=== PATIENT | male | born 1980 | race Caucasian/White ===

== ENCOUNTER 2024-04-11 21:54 | Emergency (ER) | payer OTHER ==
[2024-04-11] MEDS ORDERED: ACETAMINOPHEN 325 MG TABLET ONE (22:29)
[2024-04-11] MEDS ORDERED: IBUPROFEN 400 MG TAB ONE (22:29)
[2024-04-11] MEDS ORDERED: HYDROCODONE/APAP 5/325 MG TAB ONE (22:30)
--- NOTE | 2024-04-12 00:07 | ER ---
Nurse's Notes [facility] Name: Josep Douglas Age: 44 yrs Sex: Male : 1980 Arrival Date: 04/11/2024 Time: 21:54 Bed 19 Private MD: Diagnosis: Sprain of ankle-right Presentation: 04/11 22:23 Chief complaint: Patient states: walking home and stepped in a hole heard right ankle vc1 pop. Coronavirus screen: Client denies travel out of the [place] in the last 14 days. At this time, the client does not indicate any symptoms associated with coronavirus-19. Ebola Screen: Patient negative for fever greater than or equal to 101.5 degrees Fahrenheit, and additional compatible Ebola Virus Disease symptoms Patient denies exposure to infectious person. Patient denies travel to an Ebola-affected area in the 21 days before illness onset. No symptoms or risks identified at this time. Initial Sepsis Screen: Does the patient meet any 2 criteria? No. Patient's initial sepsis screen is negative. Does the patient have a suspected source of infection? No. Patient's initial sepsis screen is negative. Risk Assessment: Do you want to hurt yourself or someone else? Patient reports no desire to harm self or others. Onset of symptoms was April 11, 2024 at 21:00. 22:23 Method Of Arrival: Wheelchair vc1 22:23 Acuity: RAVI 3 vc1 Triage Assessment: 22:26 General: Appears in no apparent distress. uncomfortable, well groomed, well developed, vc1 Behavior is calm, cooperative, appropriate for age. Pain: Complains of pain in right lateral malleolus and dorsum of right foot Pain does not radiate. Pain currently is 10 out of 10 on a pain scale. Quality of pain is described as sharp, Pain began suddenly, Is continuous, Alleviated by rest, Aggravated by increased activity, weight bearing, Noted to be resistant to movement. EENT: No deficits noted. No signs and/or symptoms were reported regarding the EENT system. Neuro: Level of Consciousness is awake, alert, obeys commands, Oriented to person, place, time, situation, Appropriate for age. Cardiovascular: Patient's skin is warm and dry. Respiratory: Airway is patent Respiratory effort is even, unlabored, Respiratory pattern is regular, symmetrical. GI: No deficits noted. No signs and/or symptoms were reported involving the gastrointestinal system. : No deficits noted. No signs and/or symptoms were reported regarding the genitourinary system. Derm: Skin is intact, is healthy with good turgor, Skin is dry, Skin is normal, Skin temperature is warm. Musculoskeletal: Swelling present in dorsum of right foot. 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 - Infectious Disease History:: Denies. - Social history:: Smoking status: Patient reports the use of cigarette tobacco products, smokes one-half pack cigarettes per day. Screenin:25 [facility] ED Fall Risk Assessment (Adult) History of falling in the last 3 months, vc1 including since admission Yes- single mechanical fall (1 pt) Confusion or Disorientation No (0 pts) Intoxicated or Sedated No (0 pts) Impaired Gait No (0 pts) Mobility Assist Device Used No (0 pt) Altered Elimination No (0 pt) Score/Fall Risk Level 0 - 2 = Low Risk Oriented to surroundings, Maintained a safe environment, Educated pt \T\ family on fall prevention, incl call for assistance when getting out of bed, Assessed \T\ reinforced patient's understanding of fall precautions, Hourly rounding (assess needs \T\ fall precautionary measures) done. Abuse screen: Denies threats or abuse. Nutritional screening: No deficits noted. Tuberculosis screening: No symptoms or risk factors identified. Assessment: 21:45 Reassessment: Patient and/or family updated on plan of care and expected duration. Pain br2 level reassessed. Patient is alert, oriented x 3, equal unlabored respirations, skin warm/dry/pink. Patient states feeling better. Patient states symptoms have improved. 22:27 Reassessment: Patient and/or family updated on plan of care and expected duration. Pain br2 level reassessed. Patient is alert, oriented x 3, equal unlabored respirations, skin warm/dry/pink. General: Appears uncomfortable, Behavior is calm, cooperative. Pain: Complains of pain in right ankle Pain does not radiate. Pain currently is 9 out of 10 on a pain scale. Quality of pain is described as aching, Pain began 2 hours ago. Neuro: [place] Agitation-Sedation Scale (RASS): 0 - Alert and Calm Level of Consciousness is awake, alert, obeys commands, Oriented to person, place, time, situation. Cardiovascular: Denies chest pain, shortness of breath, Capillary refill < 3 seconds. Respiratory: Airway is patent Respiratory effort is even, unlabored, Respiratory pattern is regular, symmetrical. GI: No signs and/or symptoms were reported involving the gastrointestinal system. : No signs and/or symptoms were reported regarding the genitourinary system. EENT: No signs and/or symptoms were reported regarding the EENT system. Derm: No signs and/or symptoms reported regarding the dermatologic system. Musculoskeletal: Swelling present in right ankle. Injury Description: STEPPED INTO A HOLE. 23:52 Reassessment: Patient and/or family updated on plan of care and expected duration. Pain br2 level reassessed. Patient is alert, oriented x 3, equal unlabored respirations, skin warm/dry/pink. Patient states feeling better. Patient states symptoms have improved. Vital Signs: 22:23 BP 149 / 98; Pulse 76; Resp 14; Pulse Ox 99% ; Weight 79.83 kg; Height 5 ft. 0 in. ; vc1 Pain 10/10; 22:30 BP 140 / 97; Pulse 76; Resp 18; Pulse Ox 99% ; br2 23:30 BP 134 / 95; Pulse 74; Resp 16 S; Pulse Ox 95% on R/A; Pain 3/10; br2 04/12 00:30 BP 137 / 94; Pulse 86; Resp 18 S; Pulse Ox 96% on R/A; Pain 3/10; br2 04/11 22:23 Body Mass Index 34.37 (79.83 kg, 152.4 cm) vc1 04/11 22:23 Pain Scale: Adult vc1 23:30 Pain Scale: Adult br2 04/12 00:30 Pain Scale: Adult br2 ED Course: 04/11 21:58 Patient arrived in ED. [id number] 22:04 Haja Wall PA is PHCP. cp 22:04 Sina Gutierrez DO is Attending Physician. cp 22:25 Triage completed. vc1 22:25 Arm band placed on left wrist. vc1 22:26 Mosheim, Priya, RN is Primary Nurse. br2 22:27 Patient has correct armband on for positive identification. Bed in low position. Call vc1 light in reach. Pulse ox on. NIBP on. 22:42 XRAY Ankle RIGHT 3 view In Process Unspecified. EDMS 04/12 00:05 Armen Sethi MD is Referral Physician. cp 00:30 Crutch training done. Alpesh wrap to right ankle ANKLE AIR STIRRUP. br2 00:49 No provider procedures requiring assistance completed. Patient did not have IV access br2 during this emergency room visit. Administered Medications: 04/11 22:36 Drug: Acetaminophen PO 650 mg PO once Route: PO; ha1 23:15 Follow up: Response: No adverse reaction; Pain is decreased br2 22:36 Drug: HYDROcodone-acetaminophen PO 5 mg-325 mg 1 tabs PO once Route: PO; ha1 23:00 Follow up: Response: No adverse reaction; Pain is decreased br2 22:37 Drug: Ibuprofen PO 800 mg PO once Route: PO; ha1 23:15 Follow up: Response: No adverse reaction; Pain is decreased br2 Medication: 22:27 VIS not applicable for this client. vc1 Outcome: 04/12 00:06 Discharge ordered by MD. cp 00:49 Discharged to home via wheelchair, br2 00:49 Condition: improved 00:49 Discharge instructions given to patient, Instructed on discharge instructions, follow up and referral plans. Demonstrated understanding of instructions, follow-up care, crutch walking, splint care, Prescriptions given X 1, 00:59 Patient left the ED. br2 Signatures: Dispatcher [employer] EDSC Haja Wall PA PA cp Jeffries, Jennifer [id number] Gaviota Mcclelland RN RN vc1 Ember Barksdale RN RN ha1 Priya Branch RN RN br2
--- NOTE | 2024-04-12 00:07 | EDPHYS ---
Physician Documentation [facility] Name: Josep Douglas Age: 44 yrs Sex: Male : 1980 Arrival Date: 04/11/2024 Time: 21:54 Bed 19 Private MD: ED Physician Sina Gutierrez HPI: 04/11 22:20 This 44 yrs old Male presents to ER via Wheelchair with complaints of Fall Injury. cp 22:20 The patient presents with an injury. The complaints affect the right ankle. Onset: The cp symptoms/episode began/occurred tonight after stepping in hole while walking. 22:20 Associated signs and symptoms: The patient has no apparent associated signs or symptoms.cp Historical: - Allergies: 22:25 No Known Allergies; vc1 - PMHx: 22:25 IDD; vc1 - PSHx: 22:25 abdominal surgery; vc1 - Immunization history:: Client reports receiving the 2nd dose of the Covid vaccine. - Infectious Disease History:: Denies. - Social history:: Smoking status: Patient reports the use of cigarette tobacco products, smokes one-half pack cigarettes per day. ROS: 22:25 MS/extremity: Positive for pain, swelling, tenderness, of the right ankle, Negative for cp paresthesias, 22:25 Constitutional: Negative for fever, chills, and weight loss, cp 22:25 Neck: Negative for pain with movement, pain at rest, 22:25 Back: Negative for pain at rest, pain with movement, 22:25 All other systems are negative, Exam: 22:30 Constitutional: The patient appears in no acute distress, alert, awake, well developed, cp well nourished, uncomfortable, 22:30 Neck: ROM/movement: is normal, is supple, without pain, no range of motions cp limitations, 22:30 Back: pain, is absent, ROM is normal, 22:30 Musculoskeletal/extremity: Extremities: grossly normal except: noted in the right ankle: lateral side swelling and tenderness to palpation. pain with passive ROM, Achilles tendon palpated and intact, no pain to palpation noted base of right fifth metatarsal and/or proximal head of fibula, ROM: limited passive range of motion due to pain, in the right ankle, Perfusion: the extremity is normally perfused throughout, the right foot Sensation intact. Vital Signs: 22:23 BP 149 / 98; Pulse 76; Resp 14; Pulse Ox 99% ; Weight 79.83 kg; Height 5 ft. 0 in. ; vc1 Pain 10/10; 22:30 BP 140 / 97; Pulse 76; Resp 18; Pulse Ox 99% ; br2 23:30 BP 134 / 95; Pulse 74; Resp 16 S; Pulse Ox 95% on R/A; Pain 3/10; br2 04/12 00:30 BP 137 / 94; Pulse 86; Resp 18 S; Pulse Ox 96% on R/A; Pain 3/10; br2 04/11 22:23 Body Mass Index 34.37 (79.83 kg, 152.4 cm) vc1 04/11 22:23 Pain Scale: Adult vc1 23:30 Pain Scale: Adult br2 04/12 00:30 Pain Scale: Adult br2 MDM: 04/11 22:04 Medical Screening Exam initiated cp 23:00 Differential diagnosis: fracture, sprain, Achilles rupture, foot fracture. 04/12 00:05 Data reviewed: vital signs, nurses notes, radiologic studies, plain films. cp 00:05 I considered the following discharge prescriptions or medication management in the emergency department Medications were administered in the Emergency Department. See MAR. Independent interpretation of the following test(s) in the Emergency Department X-Ray: My interpretation is images of right ankle negative for fracture. 00:05 Counseling: I had a detailed discussion with the patient and/or guardian regarding the historical points, exam findings, and any diagnostic results supporting the discharge/admit diagnosis, radiology results, to return to the emergency department if symptoms worsen or persist or if there are any questions or concerns that arise at home. 00:05 Response to treatment: the patient's symptoms have mildly improved after treatment, and cp as a result, I will discharge patient. 04/11 22:18 Order name: XRAY Ankle RIGHT 3 view cp 04/12 00:05 Order name: Alpesh wrap-joint; Complete Time: 00:57 cp 04/12 00:05 Order name: Crutches; Complete Time: 00:57 cp 04/12 00:27 Order name: Splint - Ankle: Aircast; Complete Time: 00:57 cp Administered Medications: 04/11 22:36 Drug: Acetaminophen PO 650 mg PO once Route: PO; ha1 23:15 Follow up: Response: No adverse reaction; Pain is decreased br2 22:36 Drug: HYDROcodone-acetaminophen PO 5 mg-325 mg 1 tabs PO once Route: PO; ha1 23:00 Follow up: Response: No adverse reaction; Pain is decreased br2 22:37 Drug: Ibuprofen PO 800 mg PO once Route: PO; ha1 23:15 Follow up: Response: No adverse reaction; Pain is decreased br2 Disposition: 04/12 19:38 Chart complete. cp Disposition Summary: 04/12/24 00:06 Discharge Ordered Notes: Location: Home cp Problem: new cp Symptoms: have improved cp Condition: Stable cp Diagnosis - Sprain of ankle - right cp Followup: cp - With: Armen Sethi MD - When: 1 week - Reason: pain and swelling continues Discharge Instructions: - Discharge Summary Sheet cp - Ankle Sprain cp - RICE Therapy for Routine Care of Injuries cp Forms: - Medication Reconciliation Form cp - Antibiotic Education cp - Prescription Opioid Use cp - Patient Portal Instructions cp - Leadership Thank You Letter cp Prescriptions: - Ibuprofen 800 mg Oral Tablet - take 1 tablet ORAL route every 8 hours As needed take with food; 30 tablet; cp Refills: 0, Product Selection Permitted Addendum: 04/13/2024 11:25 I was immediately available on-site in the Emergency Department for consultation in the m s3 care of the patient. Signatures: Dispatcher [employer] EDMS Haja Wall PA PA cp Sims, Marcus, DO DO ms3 Gaviota Mcclelland RN RN vc1 Ember Barksdale RN RN ha1 Priya Branch RN br2 Corrections: (The following items were deleted from the chart) 04/12 00:26 00:05 Airborne Precautions ordered. cp cp
[2024-04-12 05:48] VITALS: BP 137/94; O2SAT 96
--- NOTE | 2024-04-12 11:06 | RAD REPORT ---
EXAMINATION: Ankle Right 3 View CLINICAL INDICATION: Male, 44 years old. [facility] MAIN Pain;Swelling Bed Name: 19 TECHNIQUE: 3 view radiographs of the right ankle were obtained. COMPARISON: No prior exam. FINDINGS: No bone or joint abnormality seen. Moderate calcaneus spur. Mild enthesopathy at the Achill es tendon attachment. Mild soft tissue swelling about the lateral malleolus. IMPRESSION: No acute osseous abnormalities. Mild soft tissue swelling about the lateral malleolus.
== END 2024-04-12 00:59 | disposition home or self-care (01) ==
LOC: ER 21:54
DX: S93.401A Sprain of unspecified ligament of right ankle, initial encounter (principal)
CPT/HCPCS: 99284